=== PATIENT | male | born 1955 | race Caucasian/White ===

== ENCOUNTER 2022-05-01 16:15 | Observation (INO) | payer MEDICARE, BC ==
[2022-05-01] MEDS ORDERED: Communication Order-Pharmacy FS SCH (17:00)
[2022-05-01] MEDS ORDERED: Aspirin Chewable 81 MG TAB ONE (17:22)
[2022-05-01 17:30] LABS: #Monocytes 1.4 10x3/uL (0.0-1.1); %Basophils 0.3 % (0.0-2.0); %Lymphocytes 12.4 % (18.0-47.0); %Monocytes 11.3 % (0.0-10.0); %Neutrophils 74.3 % (40.0-75.0); Hemoglobin 15.6 g/dL (13.5-17.5); Mean Corpuscular HGB CONC 33.6 g/dL (32.0-36.0); Mean Corpuscular Hemoglobin 31.4 pg (27.0-33.0); Mean Corpuscular Volume 93.4 fl (81.2-95.1); Mean Platelet Volume 9.5 fl (7.4-10.4); Platelet Count 259 10x3/uL (150-450); Red Blood Cell (RBC) Count 4.97 10x6/uL (4.32-5.72); White Blood Cell (WBC) Count 12.1 10x3/uL (3.5-10.5)
[2022-05-01 17:39] LABS: ALT (SGPT) 44 U/L (8-55); AST (SGOT) 27 U/L (5-34); Albumin 4.4 g/dL (3.4-4.8); Alkaline Phosphatase 86 U/L (40-110); Anion Gap 13 mmol/L (10-20); BUN (Urea Nitrogen) 20 mg/dL (8.4-25.7); Bilirubin, Total 0.3 mg/dL (0.2-1.2); CK (CPK) 54 U/L (30-200); Calc. Creatinine Clearance 0 mL/min (70-130); Calcium 9.4 mg/dL (7.8-10.44); Carbon Dioxide 27 mmol/L (23-31); Chloride 106 mmol/L (98-107); Estimated GFR 99; Globulin 2.2 g/dL (2.4-3.5); Glucose 102 mg/dL (80-115); Lipase 59 U/L (8-78); Potassium 4.4 mmol/L (3.5-5.1); Protein, Total 6.6 g/dL (5.8-8.1); Sodium 142 mmol/L (136-145)
[2022-05-01] MEDS ORDERED: Ondansetron PF 4 MG/2 ML Vial IVP PRN (19:28)
[2022-05-01] MEDS ORDERED: Guaifenesin DM 100-10/5 ML UDCUP PO PRN (19:28)
[2022-05-01] MEDS ORDERED: Acetaminophen 325 MG TAB PO PRN (19:28)
[2022-05-01] MEDS ORDERED: HYDROcodone/Acetaminophen 5/325 mg Tablet PO PRN (19:28)
[2022-05-01] MEDS ORDERED: Zolpidem Tartrate 5 MG TAB PO PRN (19:28)
[2022-05-01] MEDS ORDERED: Senokot S 8.6-50 MG TAB PO PRN (19:28)
[2022-05-01] MEDS ORDERED: Calcium Carbonate 500 MG ChewTAB PO PRN (19:28)
[2022-05-01] MEDS ORDERED: Nitroglycerin 0.4 MG TAB (25 Tab Bottle) SL PRN (19:29)
[2022-05-01 20:40] LABS: Troponin I Less than 0.010 ng/mL (< 0.028)
[2022-05-01 20:51] VITALS: BMI 28.1
[2022-05-01] MEDS ORDERED: Atorvastatin Calcium 20 MG TAB PO SCH (21:00)
[2022-05-01] MEDS ORDERED: Enoxaparin Sodium 80 MG/0.8 ML SYRINGE SC SCH (21:00)
[2022-05-01] MEDS: Benzonatate 100 MG CAP PO SCH (21:53)
[2022-05-01] MEDS: Pregabalin 75 MG CAP PO SCH (21:54)
[2022-05-01] MEDS: Famotidine/PF 20 mg/2ml Vial SLOW IVP SCH (21:54)
[2022-05-02 05:12] LABS: ALT (SGPT) 54 U/L (8-55); AST (SGOT) 30 U/L (5-34); Albumin 4.1 g/dL (3.4-4.8); Alkaline Phosphatase 87 U/L (40-110); Anion Gap 15 mmol/L (10-20); BUN (Urea Nitrogen) 20 mg/dL (8.4-25.7); Bilirubin, Total 0.3 mg/dL (0.2-1.2); Calc. Creatinine Clearance 124 mL/min (70-130); Calcium 9.3 mg/dL (7.8-10.44); Carbon Dioxide 29 mmol/L (23-31); Cardiac Risk 3.1 (Less than 4.5); Chloride 104 mmol/L (98-107); Cholesterol 95 mg/dl (< 200 Desired); Estimated GFR 96; Globulin 2.4 g/dL (2.4-3.5); Glucose 123 mg/dL (80-115); HDL Cholesterol 31 mg/dL (>60 Neg Risk); LDL Cholesterol, Calculated 50 mg/dL; Potassium 4.8 mmol/L (3.5-5.1); Protein, Total 6.5 g/dL (5.8-8.1); Sodium 143 mmol/L (136-145); Triglycerides 72 mg/dL (Less than 150)
[2022-05-02 05:13] LABS: PTT 27.1 sec (22.0-33.0); Prothrombin Time 10.6 sec (9.5-12.1)
[2022-05-02] MEDS ORDERED: Dronedarone HCl 400 MG TAB PO SCH ×3 (05:30→17:00)
[2022-05-02] MEDS ORDERED: Aspirin 81 mg Enteric Coated Tablet PO SCH ×2 (05:30→09:00)
[2022-05-02] MEDS: Benzonatate 100 MG CAP PO SCH ×2 (06:25→15:49)
[2022-05-02] MEDS: Pregabalin 75 MG CAP PO SCH (06:25)
[2022-05-02] MEDS: Famotidine/PF 20 mg/2ml Vial SLOW IVP SCH (06:25)
[2022-05-02 06:27] LABS: #Basophils 0.1 10x3/uL (0.0-0.2); #Monocytes 1.2 10x3/uL (0.0-1.1); #Neutrophils 8.6 10x3/uL (1.5-8.4); %Basophils 0.4 % (0.0-2.0); %Eosinophils 0.3 % (0.0-6.0); %Lymphocytes 18.2 % (18.0-47.0); %Monocytes 9.9 % (0.0-10.0); %Neutrophils 69.3 % (40.0-75.0); Hemoglobin 15.2 g/dL (13.5-17.5); Mean Corpuscular Volume 94.1 fl (81.2-95.1); Mean Platelet Volume 9.9 fl (7.4-10.4); Platelet Count 271 10x3/uL (150-450); RBC Distribution Width 13.2 % (11.5-14.5); Red Blood Cell (RBC) Count 4.75 10x6/uL (4.32-5.72); White Blood Cell (WBC) Count 12.4 10x3/uL (3.5-10.5)
[2022-05-02] MEDS: Sodium Chloride 0.9% 1,000 ML IV SCH ×2 (06:30→17:14)
[2022-05-02] MEDS ORDERED: Iopamidol 300 61% 100 ML VIAL FS ONE (08:00)
[2022-05-02] MEDS ORDERED: Sotalol HCl 80 MG TAB PO SCH ×2 (09:00→21:00)
[2022-05-02] MEDS ORDERED: Fish Oil 1,000 MG CAP PO SCH (09:00)
[2022-05-02] MEDS ORDERED: Ezetimibe 10 MG TAB PO SCH (09:00)
[2022-05-02 11:32] VITALS: TEMP 97.5
[2022-05-02] MEDS ORDERED: Heparin 10,000 UNITS/ 10 ML VIAL ONE (12:23)
[2022-05-02] MEDS ORDERED: Nitroglycerin 50 MG/250 ML BOT 250 ML ONE (12:23)
[2022-05-02] MEDS ORDERED: Adenosine 6 MG/2 ML VIAL ONE (12:24)
[2022-05-02] MEDS ORDERED: Bivalirudin 250 MG VIAL ONE (12:24)
[2022-05-02] MEDS ORDERED: Verapamil 5 MG/2 ML VIAL ONE (12:24)
[2022-05-02] MEDS ORDERED: Lidocaine 1% MPF 2 ML VIAL ONE (12:25)
[2022-05-02] MEDS ORDERED: Midazolam HCl 2 mg/2 ml Vial ONE (13:44)
[2022-05-02] MEDS ORDERED: Fentanyl 100 MCG/2 ML VIAL ONE (13:44)
[2022-05-02] MEDS ORDERED: Nitroglycerin 0.4 MG TAB (25 Tab Bottle) SL PRN (14:17)
[2022-05-02] MEDS ORDERED: Sodium Chloride 0.9% 200 ML IV PRN (14:17)
[2022-05-02] MEDS ORDERED: Acetaminophen/Codeine 30-300mg Tablet PO PRN ×2 (14:17)
[2022-05-02 17:40] VITALS: BP 93/53
[2022-05-03] MEDS ORDERED: Aspirin 81 mg Enteric Coated Tablet PO SCH (09:00)
[2022-05-03] MEDS ORDERED: Sotalol HCl 80 MG TAB PO SCH (09:00)
== END 2022-05-02 17:53 | disposition home or self-care (01) ==
LOC: CSHERS 16:15 → INTOOBSV 20:32 → CSHTELE 20:32
PROVIDERS: ADMIT Family Medicine; ATTEND Family Medicine
PROC: 4A023N7 Measurement of Cardiac Sampling and Pressure, Left Heart, Percutaneous Approach (ICD-10-PCS; principal; 2022-05-02)
PROC: B2111ZZ Fluoroscopy of Multiple Coronary Arteries using Low Osmolar Contrast (ICD-10-PCS; 2022-05-02)
DX: I25.110 Atherosclerotic heart disease of native coronary artery with unstable angina pectoris (principal); U07.1 COVID-19; I48.0 Paroxysmal atrial fibrillation; I10 Essential (primary) hypertension; E78.2 Mixed hyperlipidemia; G62.9 Polyneuropathy, unspecified; G47.33 Obstructive sleep apnea (adult) (pediatric); G89.29 Other chronic pain; M54.9 Dorsalgia, unspecified; Z79.01 Long term (current) use of anticoagulants; Z79.82 Long term (current) use of aspirin; Z79.899 Other long term (current) drug therapy; Z95.5 Presence of coronary angioplasty implant and graft
CPT/HCPCS: 71045; 80053; 80061; 82550; 83690; 84484 ×3; 85025; 85610; 85730; 93005; 93458; 94760; 99285; C1769; C1894; U0003; U0005; 36415; 84443; 96372; 96374; 96376; 99152; G0378; J0153; J0583; J1644; J1650; J2250; J3010; J7050; Q9967; S0028

== ENCOUNTER 2022-11-14 08:36 | Outpatient (CLI) | payer MEDICARE, BC | END 2022-11-14 08:37 | disposition home or self-care (01) | LOC: CSHCT 08:36 | PROVIDERS: ATTEND Neurological Surgery | DX: M50.20 Other cervical disc displacement, unspecified cervical region (principal); M50.01 Cervical disc disorder with myelopathy, high cervical region; M47.812 Spondylosis without myelopathy or radiculopathy, cervical region | CPT/HCPCS: 72125; 80048; 85027 ==